=== PATIENT | female | born 1960 | race Caucasian/White ===

== ENCOUNTER → 2016-12-11 | Day surgery (SDC) | payer MEDICARE, OTHER | END | disposition home or self-care (01) | LOC: SDC 12-04 08:30 | DX: N30.00 Acute cystitis without hematuria (principal); N30.20 Other chronic cystitis without hematuria; N32.81 Overactive bladder; N39.41 Urge incontinence; E66.01 Morbid (severe) obesity due to excess calories; N32.9 Bladder disorder, unspecified; E11.9 Type 2 diabetes mellitus without complications; G47.30 Sleep apnea, unspecified; I11.0 Hypertensive heart disease with heart failure; I50.9 Heart failure, unspecified; M19.90 Unspecified osteoarthritis, unspecified site; G43.909 Migraine, unspecified, not intractable, without status migrainosus; M10.9 Gout, unspecified; Z87.442 Personal history of urinary calculi; Z90.49 Acquired absence of other specified parts of digestive tract; Z90.710 Acquired absence of both cervix and uterus; Z88.8 Allergy status to other drugs, medicaments and biological substances; Z87.19 Personal history of other diseases of the digestive system | CPT/HCPCS: J0585; J2704; Q9967 ==